=== PATIENT | female | born 1990 | race Caucasian/White ===

== ENCOUNTER 2020-12-13 09:57 | Inpatient (IN) | payer BC, OTHER ==
[~2020-12-13] VITALS: Ht 167.6 cm; Wt 61.0 kg
[2020-12-13] MEDS ORDERED: METOCLOPRAMIDE 5 MG/ML, 2ML ONE (10:47)
[2020-12-13] MEDS ORDERED: KETOROLAC 30 MG/1 ML ONE ×2 (10:47→15:34)
[2020-12-13] MEDS ORDERED: HYDROmorphone 2 MG/ML, 1ML ONE ×2 (10:48→12:48)
[2020-12-13] MEDS: HYDROmorphone 1 MG/ML, 1ML INJ IVPush PRN ×2 (10:53→12:49)
[2020-12-13] MEDS ORDERED: SODIUM CHLORIDE 0.9% 1,000ML IVBOLUS ONE ×2 (11:00→14:00)
[2020-12-13] MEDS ORDERED: SODIUM CHLORIDE FLUSH 10ML SYR IVF ONE (11:00)
[2020-12-13] MEDS ORDERED: METOCLOPRAMIDE 5 MG/ML, 2ML IVPush ONE (11:00)
[2020-12-13] MEDS ORDERED: KETOROLAC 30 MG/1 ML IVPush ONE (11:00)
[2020-12-13 11:01] LABS: MEAN CORPUSCULAR HEMOGLOBIN 33.2 pg (27.0-34.8); MEAN CORPUSCULAR HGB CONC 34.5 g/dL (32.4-35.8); MEAN PLATELET VOLUME 8.2 fL (7.4-10.4); PLATELET COUNT 123 x10^3/uL (130-400); RED BLOOD COUNT 4.48 x10^6/uL (3.82-5.3); RED CELL DISTRIBUTION WIDTH 12.1 % (9.6-15.2)
[2020-12-13 11:07] LABS: ALBUMIN 3.6 g/dL (3.4-5.0); ANION GAP 6 mmol/L (5-15); CALCIUM 8.1 mg/dL (8.5-10.1); CHLORIDE 106 mmol/L (98-107); CREATININE 0.67 mg/dL (0.55-1.02)
[2020-12-13 11:17] LABS: BAND#(MANUAL) 0.38 x10^3/uL; BANDS%(MANUAL) 16 % (0-7); MONOS#(MANUAL) 0.19 x10^3/uL (0.3-2.7); MONOS% (MANUAL) 8 % (2-9)
[2020-12-13 11:18] LABS: <PLATELET ESTIMATE> DECREASED; <PLT MORPHOLOGY> NORMAL PLT MORPH; <RBC MORPHOLOGY> NORMAL; LYMPH#(MANUAL) 0.46 x10^3/uL (1-3.4); LYMPHS% (MANUAL) 19 % (22-44); SEG#(MANUAL) 1.37 x10^3/uL (1.8-6.8); SEGS% (MANUAL) 57 % (42-75)
[2020-12-13 14:21] LABS: GLUCOSE, CSF 66 mg/dL (40-80); TOTAL PROTEIN,CSF 26 mg/dL (15-45)
[2020-12-13] MEDS ORDERED: DOCUSATE 100 MG CAPSULE PO PRN (15:00)
[2020-12-13] MEDS ORDERED: POLYETHYLENE GLYCOL 17 GM PACKET PO PRN (15:00)
[2020-12-13] MEDS ORDERED: MELATONIN 5 MG TABLET PO PRN (15:00)
[2020-12-13] MEDS ORDERED: SODIUM CHLORIDE 0.9% 1,000 ML IV SCH (15:00)
[2020-12-13] MEDS ORDERED: ONDANSETRON 2MG/ML, 2ML IVPush PRN (15:00)
[2020-12-13] MEDS ORDERED: AMPICILLIN/SULBACTAM 3 GM in SODIUM CHLORIDE 0.9% 100 ML IV SCH ×2 (15:30→18:00)
[2020-12-13] MEDS ORDERED: DIPHENHYDRAMINE 50 MG/ML, 1ML ONE (15:34)
[2020-12-13] MEDS: DIPHENHYDRAMINE 50 MG/ML, 1ML IVPush PRN ×3 (15:43→22:33)
--- NOTE | 2020-12-13 15:46 | NUR ---
TASK RN: PT MEDICATED PER MAR, WARM BLANKET PROVIDED.
[2020-12-13 16:51] VITALS: BP 131/86
[2020-12-13] MEDS: KETOROLAC 30 MG/1 ML IV PRN ×2 (17:20→23:49)
[2020-12-13 19:40] VITALS: BP 127/82
[2020-12-13] MEDS: ACETAMINOPHEN 325 MG TABLET PO PRN (21:39)
[2020-12-13] MEDS: AMPICILLIN/SULBACTAM 3 GM in SODIUM CHLORIDE 0.9% 100 ML IV SCH (21:40)
[2020-12-13] MEDS: METOCLOPRAMIDE 5 MG/ML, 2ML IVPush PRN (22:33)
[2020-12-14 01:08] VITALS: BP 123/76
[2020-12-14] MEDS: AMPICILLIN/SULBACTAM 3 GM in SODIUM CHLORIDE 0.9% 100 ML IV SCH ×4 (04:00→22:06)
[2020-12-14] MEDS: METOCLOPRAMIDE 5 MG/ML, 2ML IVPush PRN ×3 (05:41→22:07)
[2020-12-14] MEDS: DIPHENHYDRAMINE 50 MG/ML, 1ML IVPush PRN ×3 (05:41→22:07)
[2020-12-14 06:20] LABS: BASOPHILS % (AUTO) 1 % (0-1); EOSINOPHILS % (AUTO) 0 % (1-7); LYMPHOCYTES % (AUTO) 39 % (22-44); MEAN CORPUSCULAR HEMOGLOBIN 32.5 pg (27.0-34.8); MEAN CORPUSCULAR HGB CONC 33.9 g/dL (32.4-35.8); MEAN PLATELET VOLUME 7.9 fL (7.4-10.4); MONOCYTES % (AUTO) 11 % (2-9); NEUTROPHILS % (AUTO) 50 % (42-75); PLATELET COUNT 116 x10^3/uL (130-400); RED BLOOD COUNT 4.18 x10^6/uL (3.82-5.3); RED CELL DISTRIBUTION WIDTH 12.1 % (9.6-15.2)
[2020-12-14 06:34] LABS: CHLORIDE 111 mmol/L (98-107); D-DIMER 1.32 ug/mlFEU (0.00-0.52)
[2020-12-14 06:57] LABS: ALANINE AMINOTRANSFERASE 20 U/L (12-78); ALBUMIN 2.4 g/dL (3.4-5.0); ALKALINE PHOSPHATASE 26 U/L (45-117); ANION GAP 4 mmol/L (5-15); BILIRUBIN,TOTAL 0.5 mg/dL (0.2-1.0); C-REACTIVE PROTEIN, QUANT 0.93 mg/dL (0.02-0.49); CALCIUM 7.4 mg/dL (8.5-10.1); CREATINE KINASE, TOTAL 111 U/L (26-192); CREATININE 0.51 mg/dL (0.55-1.02); TOTAL PROTEIN 5.6 g/dL (6.4-8.2)
[2020-12-14] MEDS: KETOROLAC 30 MG/1 ML IV PRN ×2 (07:08→14:34)
[2020-12-14 08:19] VITALS: BP 106/61
[2020-12-14] MEDS: AZITHROMYCIN 500 MG in SODIUM CHLORIDE 0.9% 250 ML IV SCH (11:57)
[2020-12-14 12:04] VITALS: BP 112/71
[2020-12-14] MEDS: ACETAMINOPHEN 325 MG TABLET PO PRN (12:18)
[2020-12-14 13:06] VITALS: BP 121/82
[2020-12-14] MEDS ORDERED: OMNIPAQUE 350 MG/ML, 100ML BOTTLE ONE (14:02)
[2020-12-14] MEDS: GUAIFENESIN/COD200MG-20MG/10ML LIQUID PO PRN ×2 (14:34→22:07)
[2020-12-14] MEDS: DEXAMETHASONE 4 MG/ML, 1ML IVPush SCH (15:48)
[2020-12-14] MEDS ORDERED: ENOXAPARIN 40 MG/0.4 ML SQ SCH (16:00)
[2020-12-14] MEDS ORDERED: SUMATRIPTAN 6MG/0.5ML SQ PRN (16:00)
[2020-12-14 21:50] VITALS: BP 122/82
[2020-12-15 00:44] VITALS: BP 116/76
[2020-12-15] MEDS: DEXAMETHASONE 4 MG/ML, 1ML IVPush SCH ×2 (00:55→10:08)
[2020-12-15] MEDS ORDERED: SODIUM CHLORIDE 0.9%, 250ML IVBOLUS ONE (04:30)
[2020-12-15] MEDS: GABAPENTIN 300 MG CAPSULE PO PRN (04:52)
[2020-12-15] MEDS: AMPICILLIN/SULBACTAM 3 GM in SODIUM CHLORIDE 0.9% 100 ML IV SCH ×4 (04:52→22:00)
[2020-12-15 05:25] LABS: BASOPHILS % (AUTO) 0 % (0-1); EOSINOPHILS % (AUTO) 0 % (1-7); LYMPHOCYTES % (AUTO) 15 % (22-44); MEAN CORPUSCULAR HEMOGLOBIN 32.9 pg (27.0-34.8); MEAN CORPUSCULAR HGB CONC 34.6 g/dL (32.4-35.8); MONOCYTES % (AUTO) 5 % (2-9); NEUTROPHILS % (AUTO) 80 % (42-75); PLATELET COUNT 149 x10^3/uL (130-400); RED BLOOD COUNT 4.27 x10^6/uL (3.82-5.3); RED CELL DISTRIBUTION WIDTH 12.2 % (9.6-15.2)
[2020-12-15 05:34] LABS: ANION GAP 5 mmol/L (5-15); CHLORIDE 105 mmol/L (98-107); CREATININE 0.56 mg/dL (0.55-1.02)
[2020-12-15] MEDS: KETOROLAC 30 MG/1 ML IV PRN (06:06)
[2020-12-15] MEDS ORDERED: PHARMACY INSTRUCTION MC PRN (08:30)
[2020-12-15 08:41] VITALS: BP 101/63
[2020-12-15] MEDS ORDERED: REMDESIVIR 200 MG in SODIUM CHLORIDE 0.9% 100 ML IVPB ONE ×2 (09:00→18:30)
[2020-12-15] MEDS: ENOXAPARIN 40 MG/0.4 ML SQ SCH ×2 (10:08→21:34)
[2020-12-15] MEDS: CHOLECALCIFEROL 5,000u TAB PO SCH (10:08)
[2020-12-15] MEDS: ZINC SULFATE 220 MG CAPSULE PO SCH (10:08)
[2020-12-15] MEDS: THIAMINE 100MG TABLET PO SCH (10:08)
[2020-12-15] MEDS: AZITHROMYCIN 500 MG in SODIUM CHLORIDE 0.9% 250 ML IV SCH (12:04)
[2020-12-15 13:02] VITALS: BP 121/85
[2020-12-15] MEDS: ASCORBIC ACID 500 MG TABLET PO SCH (16:04)
[2020-12-15] MEDS: METOCLOPRAMIDE 5 MG/ML, 2ML IVPush PRN (18:30)
[2020-12-15] MEDS: DIPHENHYDRAMINE 50 MG/ML, 1ML IVPush PRN (18:30)
[2020-12-15 19:23] VITALS: BP 132/89
[2020-12-15] MEDS ORDERED: TEMAZEPAM 15 MG CAPSULE PO PRN ×2 (21:00→22:00)
[2020-12-15] MEDS: GUAIFENESIN/COD200MG-20MG/10ML LIQUID PO PRN (21:45)
[2020-12-16] VITALS: BP 127/82
[2020-12-16 03:46] LABS: BASOPHILS % (AUTO) 0 % (0-1); EOSINOPHILS % (AUTO) 0 % (1-7); LYMPHOCYTES % (AUTO) 20 % (22-44); MEAN CORPUSCULAR HEMOGLOBIN 32.3 pg (27.0-34.8); MONOCYTES % (AUTO) 9 % (2-9); NEUTROPHILS % (AUTO) 70 % (42-75); PLATELET COUNT 172 x10^3/uL (130-400); RED BLOOD COUNT 4.38 x10^6/uL (3.82-5.3); RED CELL DISTRIBUTION WIDTH 11.8 % (9.6-15.2)
[2020-12-16 03:58] LABS: CHLORIDE 106 mmol/L (98-107)
[2020-12-16 04:00] VITALS: BP 122/76
[2020-12-16 04:05] LABS: ALANINE AMINOTRANSFERASE 21 U/L (12-78); ALBUMIN 2.8 g/dL (3.4-5.0); ALKALINE PHOSPHATASE 27 U/L (45-117); ANION GAP 6 mmol/L (5-15); BILIRUBIN,TOTAL 0.4 mg/dL (0.2-1.0); CREATININE 0.72 mg/dL (0.55-1.02); TOTAL PROTEIN 6.4 g/dL (6.4-8.2)
[2020-12-16] MEDS: AMPICILLIN/SULBACTAM 3 GM in SODIUM CHLORIDE 0.9% 100 ML IV SCH ×4 (04:25→22:12)
[2020-12-16] MEDS: GUAIFENESIN/COD200MG-20MG/10ML LIQUID PO PRN ×2 (05:13→22:28)
[2020-12-16] MEDS: DIPHENHYDRAMINE 50 MG/ML, 1ML IVPush PRN ×2 (05:28→15:55)
[2020-12-16] MEDS: METOCLOPRAMIDE 5 MG/ML, 2ML IVPush PRN ×2 (05:28→15:55)
[2020-12-16] MEDS ORDERED: REMDESIVIR 100 MG in SODIUM CHLORIDE 0.9% 100 ML IVPB SCH (08:30)
[2020-12-16 09:24] VITALS: BP 130/75
[2020-12-16] MEDS: ASCORBIC ACID 500 MG TABLET PO SCH ×2 (09:28→15:55)
[2020-12-16] MEDS: ZINC SULFATE 220 MG CAPSULE PO SCH (09:29)
[2020-12-16] MEDS: DEXAMETHASONE 4 MG/ML, 1ML IVPush SCH (09:29)
[2020-12-16] MEDS: THIAMINE 100MG TABLET PO SCH (09:29)
[2020-12-16] MEDS: POTASSIUM CHLORIDE 20 MEQ TAB.ER.PRT PO SCH ×3 (09:29→15:55)
[2020-12-16] MEDS: CHOLECALCIFEROL 5,000u TAB PO SCH (09:29)
[2020-12-16] MEDS: KETOROLAC 30 MG/1 ML IV PRN (09:29)
[2020-12-16] MEDS: ENOXAPARIN 40 MG/0.4 ML SQ SCH ×2 (09:30→21:00)
[2020-12-16] MEDS: AZITHROMYCIN 500 MG in SODIUM CHLORIDE 0.9% 250 ML IV SCH (11:27)
[2020-12-16 12:42] VITALS: BP 122/74
[2020-12-16 15:22] VITALS: BP 122/81
[2020-12-16] MEDS: REMDESIVIR 100 MG in SODIUM CHLORIDE 0.9% 100 ML IVPB SCH (17:10)
[2020-12-16 19:02] VITALS: BP 125/96
[2020-12-17] VITALS: BP 128/82
[2020-12-17] MEDS: AMPICILLIN/SULBACTAM 3 GM in SODIUM CHLORIDE 0.9% 100 ML IV SCH ×4 (04:24→22:15)
[2020-12-17 04:32] LABS: BASOPHILS % (AUTO) 0 % (0-1); EOSINOPHILS % (AUTO) 0 % (1-7); LYMPHOCYTES % (AUTO) 22 % (22-44); MEAN CORPUSCULAR HEMOGLOBIN 33.1 pg (27.0-34.8); MEAN CORPUSCULAR HGB CONC 34.8 g/dL (32.4-35.8); MEAN PLATELET VOLUME 7.8 fL (7.4-10.4); MONOCYTES % (AUTO) 15 % (2-9); NEUTROPHILS % (AUTO) 63 % (42-75); PLATELET COUNT 181 x10^3/uL (130-400); RED BLOOD COUNT 4.24 x10^6/uL (3.82-5.3); RED CELL DISTRIBUTION WIDTH 11.9 % (9.6-15.2)
[2020-12-17 04:40] LABS: D-DIMER 1.29 ug/mlFEU (0.00-0.52)
[2020-12-17 04:44] LABS: CHLORIDE 108 mmol/L (98-107)
[2020-12-17 04:52] LABS: ALANINE AMINOTRANSFERASE 39 U/L (12-78); ALBUMIN 2.6 g/dL (3.4-5.0); ALKALINE PHOSPHATASE 26 U/L (45-117); ANION GAP 5 mmol/L (5-15); BILIRUBIN,TOTAL 0.4 mg/dL (0.2-1.0); CALCIUM 8.2 mg/dL (8.5-10.1); CREATININE 0.44 mg/dL (0.55-1.02)
[2020-12-17] MEDS: DEXAMETHASONE 4 MG/ML, 1ML IVPush SCH (08:40)
[2020-12-17] MEDS: ASCORBIC ACID 500 MG TABLET PO SCH ×2 (08:42→18:45)
[2020-12-17] MEDS: THIAMINE 100MG TABLET PO SCH (08:42)
[2020-12-17] MEDS: ZINC SULFATE 220 MG CAPSULE PO SCH (08:42)
[2020-12-17] MEDS: CHOLECALCIFEROL 5,000u TAB PO SCH (08:43)
[2020-12-17] MEDS: ENOXAPARIN 40 MG/0.4 ML SQ SCH ×2 (08:44→22:15)
[2020-12-17 08:45] VITALS: BP 128/81
[2020-12-17] MEDS: ACETAMINOPHEN 325 MG TABLET PO PRN (10:41)
[2020-12-17] MEDS: AZITHROMYCIN 500 MG in SODIUM CHLORIDE 0.9% 250 ML IV SCH (12:22)
[2020-12-17 16:32] VITALS: BP 128/85
[2020-12-17] MEDS: REMDESIVIR 100 MG in SODIUM CHLORIDE 0.9% 100 ML IVPB SCH (18:46)
[2020-12-17] MEDS: DIPHENHYDRAMINE 50 MG/ML, 1ML IVPush PRN (18:46)
[2020-12-17] MEDS: METOCLOPRAMIDE 5 MG/ML, 2ML IVPush PRN (18:46)
[2020-12-17 20:48] VITALS: BP 122/78
[2020-12-17] MEDS: GUAIFENESIN/COD200MG-20MG/10ML LIQUID PO PRN (22:15)
[2020-12-18 02:34] VITALS: BP 114/77
[2020-12-18] MEDS: AMPICILLIN/SULBACTAM 3 GM in SODIUM CHLORIDE 0.9% 100 ML IV SCH ×4 (03:43→21:46)
[2020-12-18 05:36] LABS: ALBUMIN 2.6 g/dL (3.4-5.0); ANION GAP 5 mmol/L (5-15); CHLORIDE 108 mmol/L (98-107)
[2020-12-18 05:41] LABS: ALANINE AMINOTRANSFERASE 44 U/L (12-78); ALKALINE PHOSPHATASE 26 U/L (45-117); BILIRUBIN,TOTAL 0.4 mg/dL (0.2-1.0); CREATININE 0.45 mg/dL (0.55-1.02); TOTAL PROTEIN 5.9 g/dL (6.4-8.2)
[2020-12-18 08:00] VITALS: BP 107/79
[2020-12-18] MEDS: CHOLECALCIFEROL 5,000u TAB PO SCH (08:01)
[2020-12-18] MEDS: ASCORBIC ACID 500 MG TABLET PO SCH ×2 (08:01→17:04)
[2020-12-18] MEDS: THIAMINE 100MG TABLET PO SCH (08:01)
[2020-12-18] MEDS: DEXAMETHASONE 4 MG/ML, 1ML IVPush SCH (08:01)
[2020-12-18] MEDS: ZINC SULFATE 220 MG CAPSULE PO SCH (08:01)
[2020-12-18] MEDS: ENOXAPARIN 40 MG/0.4 ML SQ SCH ×2 (08:02→21:00)
[2020-12-18] MEDS: GABAPENTIN 300 MG CAPSULE PO PRN ×2 (08:10→21:46)
[2020-12-18 12:06] VITALS: BP 111/80
[2020-12-18] MEDS: AZITHROMYCIN 500 MG in SODIUM CHLORIDE 0.9% 250 ML IV SCH (12:06)
[2020-12-18] MEDS: DIPHENHYDRAMINE 50 MG/ML, 1ML IVPush PRN (15:26)
[2020-12-18] MEDS: METOCLOPRAMIDE 5 MG/ML, 2ML IVPush PRN (15:27)
[2020-12-18] MEDS: REMDESIVIR 100 MG in SODIUM CHLORIDE 0.9% 100 ML IVPB SCH (17:05)
[2020-12-18] MEDS ORDERED: RIZA10TA34 PO (17:11)
[2020-12-18] MEDS ORDERED: RIZATRIPTAN 10MG TABLET PO PRN (17:30)
[2020-12-18 19:41] VITALS: BP 112/85
[2020-12-18] MEDS: GUAIFENESIN/COD200MG-20MG/10ML LIQUID PO PRN (21:46)
[2020-12-19 01:21] VITALS: BP 101/64
[2020-12-19] MEDS: AMPICILLIN/SULBACTAM 3 GM in SODIUM CHLORIDE 0.9% 100 ML IV SCH ×2 (04:01→12:03)
[2020-12-19 05:27] LABS: BASOPHILS % (AUTO) 0 % (0-1); EOSINOPHILS % (AUTO) 0 % (1-7); LYMPHOCYTES % (AUTO) 19 % (22-44); MEAN CORPUSCULAR HEMOGLOBIN 32.3 pg (27.0-34.8); MEAN CORPUSCULAR HGB CONC 34.5 g/dL (32.4-35.8); MONOCYTES % (AUTO) 13 % (2-9); NEUTROPHILS % (AUTO) 69 % (42-75); PLATELET COUNT 247 x10^3/uL (130-400); RED BLOOD COUNT 4.17 x10^6/uL (3.82-5.3); RED CELL DISTRIBUTION WIDTH 11.9 % (9.6-15.2)
[2020-12-19] MEDS ORDERED: REMDESIVIR 100 MG in SODIUM CHLORIDE 0.9% 100 ML IVPB ONE (07:00)
[2020-12-19] MEDS: DEXAMETHASONE 4 MG/ML, 1ML IVPush SCH (10:26)
[2020-12-19] MEDS: ENOXAPARIN 40 MG/0.4 ML SQ SCH (10:27)
[2020-12-19] MEDS: THIAMINE 100MG TABLET PO SCH (10:27)
[2020-12-19] MEDS: CHOLECALCIFEROL 5,000u TAB PO SCH (10:27)
[2020-12-19] MEDS: ZINC SULFATE 220 MG CAPSULE PO SCH (10:27)
[2020-12-19] MEDS: ASCORBIC ACID 500 MG TABLET PO SCH (10:27)
[2020-12-19 10:46] VITALS: BP 115/81
[2020-12-19] MEDS ORDERED: DEXA4TAB66 PO (11:19)
[2020-12-19] MEDS ORDERED: AZIT250T PO (11:21)
== END 2020-12-19 13:12 | disposition home or self-care (01) | DRG 871 ==
LOC: ED 10:41 → OBSVTOIN 14:38 → EDIP 14:38 → INTOOBSV 14:38 → 3N 14:47 → EDIP 14:54 → 4WST 16:46 → 3N 12-18 06:15
PROVIDERS: ADMIT Hospitalist; ATTEND Internal Medicine
PROC: 009U3ZX Drainage of Spinal Canal, Percutaneous Approach, Diagnostic (ICD-10-PCS; principal; 2020-12-13)
PROC: XW033E5 Introduction of Remdesivir Anti-infective into Peripheral Vein, Percutaneous Approach, New Technology Group 5 (ICD-10-PCS; 2020-12-15)
DX: A41.9 Sepsis, unspecified organism (principal); J96.01 Acute respiratory failure with hypoxia; U07.1 COVID-19; J12.82 Pneumonia due to coronavirus disease 2019; J15.9 Unspecified bacterial pneumonia; D68.59 Other primary thrombophilia; G43.909 Migraine, unspecified, not intractable, without status migrainosus; J01.00 Acute maxillary sinusitis, unspecified; E04.2 Nontoxic multinodular goiter; Z88.2 Allergy status to sulfonamides; Z88.1 Allergy status to other antibiotic agents
CPT/HCPCS: 36415; 70450; 71045; 71275; 80048; 80053; 82040; 82550; 82728; 82945; 83615; 84157; 84443; 85025; 85379; 85384; 86140; 87070; 87205; 89051; 93970; 96365; 96375; 99285; G0378; J0295; J0456; J1100; J1170; J1650; J1885; Q9967; J1200; J2765; J7030; J7050